=== PATIENT | female | born 1940 | race Caucasian/White ===

== ENCOUNTER → 2016-12-13 | Outpatient (CLI) | payer MEDICARE, OTHER | END | disposition home or self-care (01) | LOC: GMAL 10:12 | PROVIDERS: ATTEND Family Medicine | DX: D51.3 Other dietary vitamin B12 deficiency anemia (principal); I10 Essential (primary) hypertension; E55.9 Vitamin D deficiency, unspecified; E11.9 Type 2 diabetes mellitus without complications; E78.2 Mixed hyperlipidemia; R53.82 Chronic fatigue, unspecified ==

== ENCOUNTER → 2017-09-18 | Outpatient (CLI) | payer MEDICARE, OTHER | END | disposition home or self-care (01) | LOC: GMAL 10:27 | PROVIDERS: ATTEND Family Medicine | DX: D51.9 Vitamin B12 deficiency anemia, unspecified (principal); D51.3 Other dietary vitamin B12 deficiency anemia ==

== ENCOUNTER → 2019-02-20 | Outpatient (CLI) | payer MEDICARE, OTHER | LOC: GMAE 12:26 | PROVIDERS: ATTEND Family Medicine | DX: D51.3 Other dietary vitamin B12 deficiency anemia (principal); R53.82 Chronic fatigue, unspecified; E55.9 Vitamin D deficiency, unspecified; I10 Essential (primary) hypertension; E11.9 Type 2 diabetes mellitus without complications; E78.2 Mixed hyperlipidemia ==

== ENCOUNTER → 2019-07-03 | Outpatient (CLI) | payer MEDICARE, OTHER ==
--- NOTE | 2019-07-04 17:53 | MRI ---
EXAM DESCRIPTION: Knee,Right CLINICAL HISTORY: 78 years Female, RIGHT KNEE PAIN COMPARISON: None. TECHNIQUE: Noncontrast multiplanar multisequence magnetic resonance imaging of the radius. FINDINGS: Small radial type tearing of the posterior horn medial meniscus is superimposed on mild circumferential free edge labral degeneration. Similar free edge circumferential degeneration of the lateral meniscus with a focus of low-grade radial tearing at the body segment. The anterior and posterior cruciate ligaments are normal. The quadriceps and patellar tendons are normal. Medial and lateral patellar retinacular attachments are maintained. There is mild increased PD signal within the substance of the medial collateral ligament. No high-grade MCL tearing. The fibular collateral ligament is maintained. There is a small knee joint effusion. No synovitis. No popliteal cyst formation. Mild generalized thinning of the lateral patellar articular surface extending over the apex without subchondral bone marrow edema or cystlike formation. Diffuse thinning of the medial compartment articular surface with small 0.8 cm focus of full-thickness cartilage loss and subchondral sclerosis consistent with grade 4. Mild generalized thinning of the medial compartment articular surface without high-grade chondral defect. IMPRESSION: Low-grade MCL sprain. Degenerative type radial tears of the medial and lateral menisci. Mild patellofemoral and medial compartment chondrosis. Small knee joint effusion. No synovitis. Intact cruciate ligaments. Electronically signed by: Cb Hutchison MD 07/04/2019 5:51 PM CDT
== END ==
LOC: MRI 08:51
PROVIDERS: ATTEND Family Medicine
DX: S83.411A Sprain of medial collateral ligament of right knee, initial encounter (principal); S83.241A Other tear of medial meniscus, current injury, right knee, initial encounter; S83.281A Other tear of lateral meniscus, current injury, right knee, initial encounter; M22.41 Chondromalacia patellae, right knee

== ENCOUNTER → 2020-02-26 | Outpatient (CLI) | payer MEDICARE, OTHER | LOC: GMAL 17:26 | PROVIDERS: ATTEND Family Medicine | DX: D51.9 Vitamin B12 deficiency anemia, unspecified (principal); R53.82 Chronic fatigue, unspecified; E55.9 Vitamin D deficiency, unspecified; I10 Essential (primary) hypertension; E11.9 Type 2 diabetes mellitus without complications; E78.2 Mixed hyperlipidemia ==